=== PATIENT | male | born 1995 | race Caucasian/White ===

== ENCOUNTER 2018-11-16 19:45 | Inpatient (IN) | payer BC ==
[~2018-11-16] VITALS: Ht 177.8 cm; Wt 80.3 kg
[2018-11-16 20:10] LABS: BASO % 0.1 % (0.0-2.0); EOS # 0.1 (0.0-0.7); GRAN # 4.6 (1.4-6.5); HEMATOCRIT 42.5 % (42.0-52.0); HEMOGLOBIN 15.2 g/dl (13.5-18.0); LYMPH # 1.8 (1.2-3.4); LYMPH % 25.5 % (20.0-51.0); MEAN CELL VOLUME 89 fl (80.0-100.0); MEAN CORPUSCULAR HEMOGLOBIN 32 pg (27.0-31.0); MEAN CORPUSCULAR HGB CONC 36 g/dl (33.0-37.0); MEAN PLATELET VOLUME 10.3 fl (7.4-10.4); MONO # 0.6 (0.1-0.6); MONO % 8.1 % (1.7-9.3); PLATELET COUNT 192 K/mm3 (130-400); RED BLOOD COUNT 4.77 M/mm3 (4.20-5.60); REDCELL DISTRIBUTION WIDTH-CV 12.2 % (11.5-14.5)
[2018-11-16 20:23] LABS: ALANINE AMINOTRANSFERASE 17 U/L (21-72); ALBUMIN 4.7 gm/dL (3.5-5.0); ALKALINE PHOSPHATASE 68 U/L (50-136); ANION GAP 12 mmol/L (7-16); AST,SGOT 34 U/L (15-37); BILIRUBIN,TOTAL 0.6 mg/dL (0.0-1.0); BLOOD UREA NITROGEN 23 mg/dL (9-20); CALCIUM 9.9 mg/dL (8.4-10.2); CARBON DIOXIDE 27 mmol/L (22-30); CHLORIDE 103 mmol/L (98-107); CREATININE, serum 1.08 (0.66-1.25); GLUCOSE 127 mg/dL (74-106); POTASSIUM 4.1 mmol/L (3.4-5.0); SODIUM 142 mmol/L (137-145); TOTAL PROTEIN 7.9 gm/dL (6.4-8.2)
[2018-11-16 20:32] LABS: PROTHROMBIN TIME 10.9 SECONDS (9.7-12.8)
[2018-11-16 20:35] LABS: PARTIAL THROMBOPLASTIN TIME 28.3 SECONDS (26.0-37.0)
[2018-11-16 20:36] LABS: TROPONIN-I < 0.012 ng/mL (0.000-0.035)
[2018-11-16 20:54] LABS: TRICYCLIC ANTIDEPRESS URINE NEGATIVE
[2018-11-16 22:50] VITALS: BP 148/92; PULSE 92; TEMP 98.7
[2018-11-16 23:08] VITALS: BP 148/92; PULSE 74; TEMP 98.7
--- NOTE | 2018-11-16 23:22 | NUR ---
Pt arrived from ED to ICU 3. Report recieved from LEONIDES Decker in ED. Pt currently resting in bed denies pain, shortness of breath, states he still feels fluttering in his chest but not nearly at bad as before. Pt remains on Cardizem gtt at 5mg/hr and rate currently controlled at 70's-low 90's, VSS however BP's were recording high with in 150's/ 90's, BP cuff size changed and BP currently reading 115/81. Pt A/O x4, lungs sound clear, bowel sounds present x4 quad, HR- remains irregular. Pt given box lunch. Will continue to monitor pt and update provider as needed. Mother and father currently at bedside.
[2018-11-17] VITALS (544 sets, daily range): BP systolic 102–131; BP diastolic 59–85; PULSE 55–93; TEMP 98.1–99; O2SAT 79–100
--- NOTE | 2018-11-17 02:01 | NUR ---
Becca placed on stby, HR between 40's-60's. Will continue to monitor and update providers as needed.
[2018-11-17 05:22] LABS: BASO % 0.1 % (0.0-2.0); EOS # 0.1 (0.0-0.7); EOS % 0.8 % (0-4.0); GRAN # 4.2 (1.4-6.5); GRAN % 50.4 % (42.2-75.2); HEMATOCRIT 40.5 % (42.0-52.0); HEMOGLOBIN 14.3 g/dl (13.5-18.0); LYMPH # 3.4 (1.2-3.4); LYMPH % 39.8 % (20.0-51.0); MEAN CELL VOLUME 91 fl (80.0-100.0); MEAN CORPUSCULAR HEMOGLOBIN 32 pg (27.0-31.0); MEAN CORPUSCULAR HGB CONC 35 g/dl (33.0-37.0); MEAN PLATELET VOLUME 10.2 fl (7.4-10.4); MONO # 0.7 (0.1-0.6); MONO % 8.7 % (1.7-9.3); PLATELET COUNT 185 K/mm3 (130-400); RED BLOOD COUNT 4.47 M/mm3 (4.20-5.60); REDCELL DISTRIBUTION WIDTH-CV 12.5 % (11.5-14.5)
[2018-11-17 05:59] LABS: CALCIUM 9.3 mg/dL (8.4-10.2); CREATININE, serum 1.12 (0.66-1.25); POTASSIUM 3.8 mmol/L (3.4-5.0)
--- NOTE | 2018-11-17 07:15 | NUR ---
Bedside report received from Iesha RN and care resumed. Pt resting at this time. Denies any needs. Will continue to follow.
--- NOTE | 2018-11-17 08:46 | NUR ---
Dr Elder in to see pt. Will plan for [facility] cardioversion later today.
--- NOTE | 2018-11-17 08:56 | NUR ---
HA met with the patient to discuss a discharge plan. The pt lives alone in [place], but will be moving to [place] in November. The pt does not use any DME and reports independence with ADLs. The pt's PCP is Dr. Glenis Soto from [facility] and the pt receives his medications from [facility]. The pt reports no difficulties obtaining his medications. The pt does not have advanced directives in the EMR, and he was not interested in obtaining a DPOA-HC form at this time. The pt plans to return home upon discharge. There are no additional needs at this time.
--- NOTE | 2018-11-17 09:07 | NUR ---
Initial visit; Patient thanked [employer] for looking in on him and offering God's blessings and to keep him in her prayers.
--- NOTE | 2018-11-17 19:13 | NUR ---
Report given to Enedina COYLE and care transfered.
[2018-11-18] VITALS (52 sets, daily range): BP systolic 115–128; BP diastolic 61–84; PULSE 53–64; TEMP 97.7–98; O2SAT 97–100
[2018-11-18 05:13] LABS: HEMATOCRIT 38.2 % (42.0-52.0); HEMOGLOBIN 13.2 g/dl (13.5-18.0); MEAN CELL VOLUME 93 fl (80.0-100.0); MEAN CORPUSCULAR HEMOGLOBIN 32 pg (27.0-31.0); MEAN CORPUSCULAR HGB CONC 35 g/dl (33.0-37.0); MEAN PLATELET VOLUME 10.2 fl (7.4-10.4); PLATELET COUNT 161 K/mm3 (130-400); RED BLOOD COUNT 4.13 M/mm3 (4.20-5.60); REDCELL DISTRIBUTION WIDTH-CV 12.6 % (11.5-14.5)
[2018-11-18 05:28] LABS: CALCIUM 9.1 mg/dL (8.4-10.2); CREATININE, serum 1.08 (0.66-1.25); MAGNESIUM 1.9 mg/dL (1.6-2.3)
--- NOTE | 2018-11-18 08:07 | NUR ---
Report received from Enedina COYLE and care resumed.
--- NOTE | 2018-11-18 08:40 | NUR ---
Dr Elder in to see pt.
--- NOTE | 2018-11-18 10:37 | NUR ---
Dr Sotomayor in to see pt at this time.
[2018-11-18] MEDS ORDERED: XARELTO20 MG PO (10:41)
[2018-11-18] MEDS ORDERED: CARDIZEM CD 12120 MG PO (10:41)
--- NOTE | 2018-11-18 11:36 | NUR ---
Pt given discharge instructions and was walked out to private care for discharge.
== END 2018-11-18 11:35 | disposition home or self-care (01) | DRG 310 ==
LOC: COL.ER 19:45 → ICU 20:14
PROVIDERS: Emergency Medicine; Nurse Practitioner Family; ADMIT Internal Medicine
PROC: 5A2204Z Restoration of Cardiac Rhythm, Single (ICD-10-PCS; principal; 2018-11-17)
DX: I48.91 Unspecified atrial fibrillation (principal); Z82.49 Family history of ischemic heart disease and other diseases of the circulatory system
CPT/HCPCS: 99222-AI; J1650; J2704; J7030